=== PATIENT | female | born 1985 | race Asian ===

== ENCOUNTER 2018-06-02 04:14 | Inpatient (IN) | payer OTHER ==
[~2018-06-02] VITALS: Ht 160 cm; Wt 57.6 kg
[2018-06-02 05:08] VITALS: BP 101/66
[2018-06-02] MEDS ORDERED: RINGERS SOLUTION,LACTATED 1,000 ML IV ONE (05:26)
[2018-06-02] MEDS ORDERED: METOCLOPRAMIDE HCL 5 MG/ML 2 ML VIAL IVP ONE (05:30)
[2018-06-02] MEDS ORDERED: CITRIC ACID/SODIUM CITRATE 30 ML SOLUTION UDCUP PO ONE (05:30)
[2018-06-02 06:08] LABS: BASOPHILS % (AUTO) 0.6 % (0.0-2.0); EOSINOPHILS % (AUTO) 0.2 % (1.0-6.0); HEMATOCRIT 38.8 % (36-46); HEMOGLOBIN 13.1 g/dL (12.0-16.0); LYMPHOCYTES # (AUTO) 1.2 K/uL (1.0-4.8); LYMPHOCYTES % (AUTO) 12.6 % (22.0-44.0); MEAN CORPUSCULAR HEMOGLOBIN 31.2 pg (26.0-34.0); MEAN CORPUSCULAR HGB CONC 33.8 G/dL (31.0-37.0); MEAN CORPUSCULAR VOLUME 92 fL (80-100); MONOCYTES # (AUTO) 0.5 K/uL (0.1-1.0); MONOCYTES % (AUTO) 4.8 % (2.0-9.0); NEUTROPHILS # (AUTO) 7.7 K/uL (1.8-7.7); NEUTROPHILS % (AUTO) 81.8 % (40.0-70.0); PLATELET COUNT (AUTO)-OB 250 K/uL (150-450); RED BLOOD CELL COUNT(AUTO) 4.21 MIL/uL (4.00-5.20); RED CELL DISTRIBUTION WIDTH 12.9 % (11.5-14.5)
[2018-06-02] MEDS ORDERED: ACETAMINOPHEN 1000 MG/ISO-OSM 100 ML IV ONE (07:15)
[2018-06-02] MEDS ORDERED: BUPIVACAINE HCL/DEX-WATER/PF 0.75% 2 ML AMP ONE (07:15)
[2018-06-02] MEDS ORDERED: NALOXONE HCL 0.4 MG/ML VIAL IVP PRN (08:15)
[2018-06-02] MEDS ORDERED: HYDROmorphone 2 MG/ML SYRINGE IVP PRN ×2 (08:15)
[2018-06-02] MEDS ORDERED: MEPERIDINE-PF 25 MG/ML VIAL IVP PRN (08:15)
[2018-06-02] MEDS ORDERED: DiphenhydrAMINE HCL 50 MG/ML VIAL IVP PRN (08:15)
[2018-06-02] MEDS ORDERED: FentaNYL CITRATE-PF 100 MCG/2 ML VIAL IVP PRN ×2 (08:15)
[2018-06-02] MEDS ORDERED: ONDANSETRON HCL 4 MG/2 ML VIAL IVP PRN (08:15)
[2018-06-02] MEDS ORDERED: OxyCODONE HCL/ACETAMINOPHEN 10-325 MG TABLET PO PRN (08:15)
[2018-06-02] MEDS ORDERED: OXYTOCIN 30 UNITS/LACT RINGERS 500 ML IV ONE (09:25)
[2018-06-02] MEDS ORDERED: LANOLIN 7 GM OINTMENT TP PRN (09:30)
[2018-06-02] MEDS ORDERED: OxyCODONE HCL/ACETAMINOPHEN 5-325 MG TABLET PO PRN ×2 (09:30)
[2018-06-02] MEDS ORDERED: ONDANSETRON HCL 4 MG/2 ML VIAL IVP ONE (12:00)
[2018-06-02] MEDS ORDERED: FentaNYL CITRATE-PF 100 MCG/2 ML VIAL IVP ONE (12:00)
[2018-06-02] MEDS ORDERED: KETOROLAC TROMETHAMINE 60 MG/2 ML VIAL IM ONE (12:00)
[2018-06-02] MEDS ORDERED: EPHEDrine SULFATE 50 MG/ML VIAL IM ONE (12:00)
[2018-06-02] MEDS: ACETAMINOPHEN 500 MG TABLET PO SCH ×2 (14:01→19:55)
[2018-06-02] MEDS: RINGERS SOLUTION,LACTATED 1,000 ML IV SCH ×2 (16:19→23:58)
[2018-06-02] MEDS: KETOROLAC TROMETHAMINE 15 MG/ML VIAL IVP SCH ×2 (18:04→23:39)
[2018-06-03] MEDS: ACETAMINOPHEN 500 MG TABLET PO SCH ×2 (01:40→07:33)
[2018-06-03] MEDS: KETOROLAC TROMETHAMINE 15 MG/ML VIAL IVP SCH (06:06)
[2018-06-03 06:55] LABS: BASOPHILS % (AUTO) 0.2 % (0.0-2.0); EOSINOPHILS % (AUTO) 0.3 % (1.0-6.0); HEMATOCRIT 29.8 % (36-46); HEMOGLOBIN 10.1 g/dL (12.0-16.0); LYMPHOCYTES # (AUTO) 1.4 K/uL (1.0-4.8); LYMPHOCYTES % (AUTO) 14.9 % (22.0-44.0); MEAN CORPUSCULAR VOLUME 94 fL (80-100); MONOCYTES # (AUTO) 0.6 K/uL (0.1-1.0); NEUTROPHILS # (AUTO) 7.3 K/uL (1.8-7.7); NEUTROPHILS % (AUTO) 78.6 % (40.0-70.0); PLATELET COUNT (AUTO)-OB 201 K/uL (150-450); RED BLOOD CELL COUNT(AUTO) 3.17 MIL/uL (4.00-5.20)
[2018-06-03] MEDS ORDERED: IBUPROFEN 800 MG TABLET PO PRN (09:30)
[2018-06-03] MEDS: MAGNESIUM HYDROXIDE SUSPENSION 30 ML UDCUP PO SCH ×2 (10:12→20:50)
[2018-06-04] MEDS: MAGNESIUM HYDROXIDE SUSPENSION 30 ML UDCUP PO SCH (20:08)
[2018-06-05] MEDS ORDERED: IBUP-2071 PO (09:29)
[2018-06-05] MEDS ORDERED: DSS100 PO (09:30)
[2018-06-05] MEDS ORDERED: FERR-89 PO (09:31)
== END 2018-06-05 10:15 | disposition home or self-care (01) | DRG 788 ==
LOC: 4S 04:14 → OBSVTOIN 04:14 → 4S 12:03
PROVIDERS: ADMIT Obstetrics & Gynecology; ATTEND Obstetrics & Gynecology
PROC: 10D00Z1 Extraction of Products of Conception, Low, Open Approach (ICD-10-PCS; principal; 2018-06-02)
PROC: 3E02340 Introduction of Influenza Vaccine into Muscle, Percutaneous Approach (ICD-10-PCS; 2018-06-02)
DX: O34.211 Maternal care for low transverse scar from previous cesarean delivery (principal); Z3A.38 38 weeks gestation of pregnancy; Z37.0 Single live birth; Z23 Encounter for immunization
CPT/HCPCS: 86850; 86900; 86901; 87081; 90686; J0131; J0690; J1885; J2405; J2765; J3010; J3490; J7120